=== PATIENT | female | born 1985 | race Caucasian/White ===

== ENCOUNTER 2020-09-07 01:19 | Inpatient (IN) | payer OTHER ==
[2020-09-07] MEDS ORDERED: Sodium Chloride 0.9% 2.5 ML Syringe FLUSH PRN (02:36)
[2020-09-07] MEDS ORDERED: Lidocaine 1% 50 ML MDV INJECT PRN (02:36)
[2020-09-07] MEDS ORDERED: Sodium Chloride 0.9% 10 ML Syringe FLUSH PRN (02:36)
[2020-09-07] MEDS ORDERED: Tranexamic Acid 1,000 MG in Sodium Chloride 0.9% 100 ML IV PRN (02:36)
[2020-09-07] MEDS ORDERED: Ondansetron 4 MG/2 ML SDV IVPUSH PRN (02:36)
[2020-09-07] MEDS ORDERED: Sodium Chloride 0.9% 10 ML SDV IV PRN (02:36)
[2020-09-07] MEDS ORDERED: Terbutaline 1 MG/ML SDV SUBCUT PRN (02:36)
[2020-09-07] MEDS ORDERED: Misoprostol 200 MCG Tab PO PRN (02:36)
[2020-09-07] MEDS ORDERED: Carboprost Tromethamine 250 MCG/1 ML Amp IM PRN (02:36)
[2020-09-07] MEDS ORDERED: Water For Irrigation,Sterile 1,000 ML Container IRR PRN (02:36)
[2020-09-07] MEDS ORDERED: Butorphanol 1 MG/ML SDV IVPUSH PRN (02:36)
[2020-09-07] MEDS ORDERED: Methylergonovine 0.2 MG/1 ML Amp IM PRN (02:36)
[2020-09-07] MEDS ORDERED: Lactated Ringers 1,000 ML IV SCH (02:45)
[2020-09-07] MEDS ORDERED: Oxytocin/0.9 % Sodium Chloride 30 UNIT/500 ML BAG IV SCH ×2 (02:45)
[2020-09-07] MEDS ORDERED: Misoprostol 25 MCG (1/4 of 100 MCG) Tab VAG PRN ×2 (03:00→07:00)
[2020-09-07] MEDS ORDERED: Ropivacaine HCl/PF 100 ML ONE (10:34)
[2020-09-07] MEDS ORDERED: fentaNYL 100 MCG/2 ML SDV ONE (10:34)
--- NOTE | 2020-09-07 11:06 | PCM.PREANE ---
Preanesthetic Assessment - Anesthesia/Transfusion/Family Hx Anesthesia History: Prior Anesthesia Without Reaction Family History of Anesthesia Reaction: No Transfusion History: No Prior Transfusion(s) - Physical Assessment NPO Status Date: 09/07/20 NPO Status Time: 09:30 Height: 1.75 m Weight: 126.099 kg ASA Class: 2 - Lab Values: Laboratory Last Values WBC 14.56 K/uL (4.0-11.0) H 09/07/20 02:00 RBC 4.33 M/uL (4.30-5.90) 09/07/20 02:00 Hgb 12.6 g/dL (12.0-16.0) 09/07/20 02:00 Hct 36.9 % (36.0-46.0) 09/07/20 02:00 MCV 85.2 fL (80.0-98.0) 09/07/20 02:00 MCH 29.1 pg (27.0-32.0) 09/07/20 02:00 MCHC 34.1 g/dL (31.0-37.0) 09/07/20 02:00 RDW Std Deviation 43.5 fl (28.0-62.0) 09/07/20 02:00 RDW Coeff of Karen 14 % (11.0-15.0) 09/07/20 02:00 Plt Count 292 K/uL (150-400) 09/07/20 02:00 MPV 9.70 fL (7.40-12.00) 09/07/20 02:00 Nucleated RBC % 0.0 /100WBC 09/07/20 02:00 Nucleated RBCs # 0 K/uL 09/07/20 02:00 SARS-CoV-2 RNA (ЕКАТЕРИНА) NEGATIVE (NEGATIVE) 09/07/20 02:05 Blood Type A POSITIVE 09/07/20 02:00 Antibody Screen NEGATIVE 09/07/20 02:00 - Allergies Allergies/Adverse Reactions: Allergies Allergy/AdvReac Type Severity Reaction Status Date / Time No Known Allergies Allergy Verified 01/07/14 12:11 - Acknowledgements Anesthesia Type Planned: Epidural Pt an Appropriate Candidate for the Planned Anesthesia: Yes Alternatives and Risks of Anesthesia Discussed w Pt/Guardian: Yes Pt/Guardian Understands and Agrees with Anesthesia Plan: Yes PreAnesthesia Questionnaire HEENT History: Reports: None Cardiovascular History: Reports: None Respiratory History: Reports: None Gastrointestinal History: Reports: None, GERD Genitourinary History: Reports: None [employer]ER History: Reports: Fibroids, Musculoskeletal History: Reports: None Neurological History: Reports: None, Migraines Psychiatric History: Reports: None Endocrine/Metabolic History: Reports: None, Obesity/BMI 30+ Hematologic History: Reports: None Immunologic History: Reports: None Oncologic (Cancer) History: Reports: None Dermatologic History: Reports: None - Infectious Disease History Infectious Disease History: Reports: None - Past Surgical History Head Surgeries/Procedures: Reports: None HEENT Surgical History: Reports: LASIK Other HEENT Surgeries/Procedures: migraines Cardiovascular Surgical History: Reports: None GI Surgical History: Reports: None Female Surgical History: Reports: None Endocrine Surgical History: Reports: None Neurological Surgical History: Reports: None Musculoskeletal Surgical History: Reports: None, Shoulder Surgery Oncologic Surgical History: Reports: None Dermatological Surgical History: Reports: None - SUBSTANCE USE Tobacco Use Status *Q: Never Tobacco User Tobacco Use Within Last Twelve Months: No Recreational Drug Use History: No - HOME MEDS Home Medications: Home Meds Ethinyl Estradiol/Norgestrel [Cryselle 28-Day] 1 tab PO DAILY 01/07/14 [History] Fexofenadine [Priya] 180 mg PO DAILY 01/07/14 [History] Ibuprofen [IJD: Ibuprofen] 800 mg PO Q6H PRN #20 tablet 01/26/16 [Rx] - CURRENT (IN HOUSE) MEDS Current Meds: Current Medications Butorphanol Tartrate (Butorphanol 1 Mg/Ml Sdv) 1 mg IVPUSH Q1H PRN PRN Reason: Pain Last Admin: 09/07/20 09:26 Dose: 1 mg Documented by: Carboprost Tromethamine (Carboprost Tromethamine 250 Mcg/1 Ml Amp) 250 mcg IM ASDIRECTED PRN PRN Reason: Post Hemorrhage Oxytocin/Sodium Chloride (Oxytocin 30 Unit/500 Ml-Ns) 30 unit in 500 mls @ 999 mls/hr IV TITRATE OFELIA Tranexamic Acid 1,000 mg/ (Sodium Chloride) 110 mls @ 660 mls/hr IV ONETIME PRN PRN Reason: Bleeding Oxytocin/Sodium Chloride (Oxytocin 30 Unit/500 Ml-Ns) 30 unit in 500 mls @ 2 mls/hr IV TITRATE OFELIA; Protocol Last Titration: 09/07/20 09:26 Dose: 4 munits/min, 4 mls/hr Documented by: Lactated Ringer's (Ringers, Lactated) 1,000 mls @ 150 mls/hr IV ASDIRECTED OFELIA Last Admin: 09/07/20 08:23 Dose: 150 mls/hr Documented by: Lidocaine HCl (Lidocaine 1% 50 Ml Mdv) 50 ml INJECT ONETIME PRN PRN Reason: Laceration repair Methylergonovine Maleate (Methylergonovine 0.2 Mg/1 Ml Amp) 0.2 mg IM ASDIRECTED PRN PRN Reason: Post Hemorrhage Misoprostol (Misoprostol 200 Mcg Tab) 200 mcg PO ONETIME PRN PRN Reason: Post Hemorrhage Misoprostol (Misoprostol 25 Mcg (1/4 Of 100 Mcg) Tab) 25 mcg VAG ONETIME PRN PRN Reason: Cervical Ripening Last Admin: 09/07/20 03:04 Dose: 25 mcg Documented by: Misoprostol (Misoprostol 25 Mcg (1/4 Of 100 Mcg) Tab) 25 mcg VAG Q4H PRN PRN Reason: Cervical Ripening Ondansetron HCl (Ondansetron 4 Mg/2 Ml Sdv) 4 mg IVPUSH Q6H PRN PRN Reason: Nausea/Vomiting Sodium Chloride (Sodium Chloride 0.9% 10 Ml Syringe) 10 ml FLUSH ASDIRECTED PRN PRN Reason: Keep Vein Open Sodium Chloride (Sodium Chloride 0.9% 2.5 Ml Syringe) 2.5 ml FLUSH ASDIRECTED PRN PRN Reason: Keep Vein Open Sodium Chloride (Sodium Chloride 0.9% 10 Ml Sdv) 10 ml IV ASDIRECTED PRN PRN Reason: IV Use Sterile Water (Water For Irrigation,Sterile 1,000 Ml Container) 1,000 ml IRR ASDIRECTED PRN PRN Reason: delivery Terbutaline Sulfate (Terbutaline 1 Mg/Ml Sdv) 0.25 mg SUBCUT ASDIRECTED PRN PRN Reason: Tacysystole Discontinued Medications Fentanyl (Fentanyl 100 Mcg/2 Ml Sdv) Confirm Administered Dose 100 mcg .ROUTE .STK-MED ONE Stop: 09/07/20 10:35 Ropivacaine (Naropin 0.2%) Confirm Administered Dose 100 mls @ as directed .ROUTE .STK-MED ONE Stop: 09/07/20 10:35
--- NOTE | 2020-09-07 11:11 | PCM.PRNOTE ---
- Free Text/Narrative Note: Anes Note Patient requests epidural for L&D. Sitting position. Level L3-L4 midline approach. Sterile technique. Chloraprep scrub to lumbar area. Sterile fenestrated drape applied. Epidural space easily achieved single attempt with ease using LORI technique. LORI at 4 cm. Cath threaded 6 cm with ease. Cath secured at skin using sterile clear adhesive dressing. Test 1042 3 cc 1.5% lido with epi negative. 1045 Load 10 cc 0.2% ropivicaine iwth 1 mcg cc fentayl in slow divided doses. 1049 Pumps started with 90 cc same solution. Rate is 8 cc hr wiht 6 cc q 20 min prn bolus. Garcia well. Time with paitent [id number] Haseeb Gamble [employer]CH[employer] REGISTRAR
[2020-09-07] MEDS ORDERED: Lanolin 100% Cream 7 GM Tube TOP PRN (13:57)
[2020-09-07] MEDS ORDERED: Acetaminophen 500 MG Tab PO PRN ×2 (13:57)
[2020-09-07] MEDS ORDERED: Ibuprofen 800 MG Tab PO PRN (13:57)
[2020-09-07] MEDS ORDERED: Ibuprofen 400 MG Tab PO PRN (13:57)
[2020-09-07] MEDS ORDERED: Bisacodyl 10 MG Supp RECTAL PRN (13:57)
[2020-09-07] MEDS ORDERED: oxyCODONE 5 MG Tab PO PRN (13:57)
[2020-09-07] MEDS ORDERED: Docusate Sodium 100 MG Cap PO PRN (13:57)
[2020-09-07] MEDS ORDERED: Benzocaine/Menthol 20%-0.5% Spray 78 GM Cannister TOP PRN (13:57)
[2020-09-07] MEDS ORDERED: Witch Hazel Medicated Pads 40/Jar TOP PRN (13:57)
--- NOTE | 2020-09-07 14:05 | PCM.OPNOTE ---
- General Post-Op/Procedure Note Date of Surgery/Procedure: 09/07/20 Operative Procedure(s): /1stMLL repaired Findings: Viable female APGARs 8, 9 weight 4120 gm Spontaneous delivery intact placenta with 3V cord Pre Op Diagnosis: 40 week IUP. AMA Post-Op Diagnosis: Same Anesthesia Technique: Epidural Primary Surgeon: Virginie Stephens EBL in mLs: 250 Complications: none known Condition: Good Free Text/Narrative:: Dictation [id number]
--- NOTE | 2020-09-07 16:18 | OR ---
SURGEON: Virginie Stephens M.D. DATE OF PROCEDURE: 09/07/2020 PREOPERATIVE DIAGNOSES: 1. A 40 week intrauterine . 2. Advanced maternal age. POSTOPERATIVE DIAGNOSES: 1. A 40 week intrauterine . 2. Advanced maternal age. PROCEDURES: 1. Spontaneous vaginal delivery. 2. First-degree midline laceration repair. PRIMARY SURGEON: Virginie Stephens M.D. ANESTHESIA: Epidural. ESTIMATED BLOOD LOSS: 250 mL. COMPLICATIONS: None known. FINDINGS: Viable female. scores 8 at one minute and 9 at five minutes. Weight of 4120 g. Spontaneous delivery, intact placenta, 3-vessel cord. DISPOSITION: Infant to nursery, mom in LDRP. PROCEDURE IN DETAIL: Liberty is a 35-year-old G2, P1 at 40 weeks gestational age who presented for scheduled induction of labor due to advanced maternal age. Risks of procedure had been discussed. Proper consent obtained. The patient initially was found to be about a 0.5 cm dilated, therefore, underwent Cytotec ripening, received a single dose 25 mcg, responded nicely to this, began having regular contractions. By the following morning, she was found to be approximately 2 cm, therefore, transitioned to Pitocin, became seemingly more uncomfortable with regular contractions, and had spontaneous rupture of membranes with clear fluid. She is group B beta strep negative. She then underwent regional anesthesia in the form of epidural, became more comfortable. heart tones remained category 1. She continued to progress nicely through the morning hours and shortly after 1 p.m., she was found to be complete, 100% effaced, at a +1 station, and I was called for delivery. Upon my arrival, the patient was placed in modified dorsal lithotomy position. She was prepped and draped in the usual aseptic manner. Pitocin was at 12 milliunits per minute. The patient began pushing efforts, pushed readily to a +4 station. I was able to deliver 's head atraumatically spontaneously, followed by anterior shoulder, posterior shoulder, and remainder of body without difficulty. There was a loose nuchal cord x1, reduced manually. Infant was delivered, handed off to her mother with attending nursing staff at her side. After a delay, cord was clamped x2 and cut. Cord arterial, cord venous, and cord bloods sampling obtained. Light pressure was applied while the placenta was delivered spontaneously intact. Vigorous fundal uterine massage was then applied while 30 units of Pitocin was delivered in 500 mL of IV fluid. Upon inspection of cervix, vaginal sidewall, and perineum, there was a first-degree bilateral labial lacerations that were repaired using 3-0 chromic on SH needle and a first-degree midline laceration of the perineum, which was repaired using 3-0 chromic on SH needle. Hemostasis remained evident. The patient tolerated the repair well. Uterus remained firm. Sponge, instrument, and needle counts were correct. The patient remained in LDRP, infant to nursery. MANDA / JUAN /[id number]
[2020-09-08 08:11] VITALS: BP 126/79; PULSE 77
--- NOTE | 2020-09-08 10:15 | PCM.PNPP ---
- General Info Date of Service: 09/08/20 Functional Status: Reports: Pain Controlled, Tolerating Diet, Ambulating, Urinating - Review of Systems General: Reports: Fatigue. Denies: Fever, Weakness Pulmonary: Denies: Shortness of Breath Cardiovascular: Denies: Chest Pain, Palpitations, Lightheadedness Gastrointestinal: Denies: Abdominal Pain, Nausea, Vomiting Genitourinary: Denies: Flank Pain Musculoskeletal: Reports: No Symptoms Skin: Reports: No Symptoms Neurological: Reports: No Symptoms Psychiatric: Reports: No Symptoms - General Info Date of Service: 09/08/20 - Patient Data Vital Signs - Most Recent: Last Vital Signs Temp 36.1 C 09/08/20 08:10 Pulse 77 09/08/20 08:10 Resp 18 09/08/20 08:10 BP 126/79 09/08/20 08:10 Pulse Ox 96 09/08/20 08:10 Weight - Most Recent: 126.099 kg Lab Results - Last 24 Hours: Laboratory Results - last 24 hr 09/07/20 09/08/20 Range/Units 13:29 05:34 Hgb 12.3 (12.0-16.0) g/dL Hct 36.9 (36.0-46.0) % Cord ABG pH 7.372 (7.18-7.38) Cord ABG Base Excess -3 (-10--2) Cord VBG pH 7.737 H (7.25-7.45) Cord VBG Base Excess -3 (-10--2) Med Orders - Current: Current Medications Acetaminophen (Acetaminophen 500 Mg Tab) 500 mg PO Q4H PRN PRN Reason: Pain Acetaminophen (Acetaminophen 500 Mg Tab) 1,000 mg PO Q4H PRN PRN Reason: Pain Last Admin: 09/07/20 19:38 Dose: 1,000 mg Documented by: Benzocaine/Menthol (Benzocaine/Menthol 20%-0.5% Juliaetta 78 Gm Cannister) 78 gm TOP ASDIRECTED PRN PRN Reason: Perineal Comfort Measure Last Admin: 09/07/20 18:33 Dose: 1 canister Documented by: Bisacodyl (Bisacodyl 10 Mg Supp) 10 mg RECTAL ONETIME PRN PRN Reason: Constipation Docusate Sodium (Docusate Sodium 100 Mg Cap) 100 mg PO BID PRN PRN Reason: Constipation Emollient Ointment (Lanolin 100% Cream 7 Gm Tube) 0 gm TOP ASDIRECTED PRN PRN Reason: Sore Nipples Last Admin: 09/07/20 18:32 Dose: 1 tube Documented by: Oxytocin/Sodium Chloride (Oxytocin 30 Unit/500 Ml-Ns) 30 unit in 500 mls @ 999 mls/hr IV TITRATE OFELIA Tranexamic Acid 1,000 mg/ (Sodium Chloride) 110 mls @ 660 mls/hr IV ONETIME PRN PRN Reason: Bleeding Oxytocin/Sodium Chloride (Oxytocin 30 Unit/500 Ml-Ns) 30 unit in 500 mls @ 2 mls/hr IV TITRATE OFELIA; Protocol Last Titration: 09/07/20 12:55 Dose: 12 munits/min, 12 mls/hr Documented by: Lactated Ringer's (Ringers, Lactated) 1,000 mls @ 150 mls/hr IV ASDIRECTED OFELIA Last Admin: 09/07/20 08:23 Dose: 150 mls/hr Documented by: Ibuprofen (Ibuprofen 400 Mg Tab) 400 mg PO Q4H PRN PRN Reason: Pain Ibuprofen (Ibuprofen 800 Mg Tab) 800 mg PO Q6H PRN PRN Reason: Pain Ondansetron HCl (Ondansetron 4 Mg/2 Ml Sdv) 4 mg IVPUSH Q6H PRN PRN Reason: Nausea/Vomiting Oxycodone HCl (Oxycodone 5 Mg Tab) 5 mg PO Q2H PRN PRN Reason: Pain Sodium Chloride (Sodium Chloride 0.9% 10 Ml Syringe) 10 ml FLUSH ASDIRECTED PRN PRN Reason: Keep Vein Open Sodium Chloride (Sodium Chloride 0.9% 2.5 Ml Syringe) 2.5 ml FLUSH ASDIRECTED PRN PRN Reason: Keep Vein Open Sodium Chloride (Sodium Chloride 0.9% 10 Ml Sdv) 10 ml IV ASDIRECTED PRN PRN Reason: IV Use Sterile Water (Water For Irrigation,Sterile 1,000 Ml Container) 1,000 ml IRR ASDIRECTED PRN PRN Reason: delivery Witch Violetta (Witch Violetta Medicated Pads 40/Jar) 1 pad TOP ASDIRECTED PRN PRN Reason: comfort care Last Admin: 09/07/20 18:34 Dose: 1 tub Documented by: Discontinued Medications Butorphanol Tartrate (Butorphanol 1 Mg/Ml Sdv) 1 mg IVPUSH Q1H PRN PRN Reason: Pain Last Admin: 09/07/20 09:26 Dose: 1 mg Documented by: Carboprost Tromethamine (Carboprost Tromethamine 250 Mcg/1 Ml Amp) 250 mcg IM ASDIRECTED PRN PRN Reason: Post Hemorrhage Fentanyl (Fentanyl 100 Mcg/2 Ml Sdv) Confirm Administered Dose 100 mcg .ROUTE .STK-MED ONE Stop: 09/07/20 10:35 Ropivacaine (Naropin 0.2%) Confirm Administered Dose 100 mls @ as directed .ROUTE .STK-MED ONE Stop: 09/07/20 10:35 Lidocaine HCl (Lidocaine 1% 50 Ml Mdv) 50 ml INJECT ONETIME PRN PRN Reason: Laceration repair Methylergonovine Maleate (Methylergonovine 0.2 Mg/1 Ml Amp) 0.2 mg IM ASDIRECTED PRN PRN Reason: Post Hemorrhage Misoprostol (Misoprostol 200 Mcg Tab) 200 mcg PO ONETIME PRN PRN Reason: Post Hemorrhage Misoprostol (Misoprostol 25 Mcg (1/4 Of 100 Mcg) Tab) 25 mcg VAG ONETIME PRN PRN Reason: Cervical Ripening Last Admin: 09/07/20 03:04 Dose: 25 mcg Documented by: Misoprostol (Misoprostol 25 Mcg (1/4 Of 100 Mcg) Tab) 25 mcg VAG Q4H PRN PRN Reason: Cervical Ripening Terbutaline Sulfate (Terbutaline 1 Mg/Ml Sdv) 0.25 mg SUBCUT ASDIRECTED PRN PRN Reason: Tacysystole - Interaction Support Person: - Recovery Exam Fundal Tone: Firm Fundal Level: At Umbilicus Fundal Placement: Midline Lochia Amount: Scant Lochia Color: Rubra/Red Perineum Description: Intact, Minimal Bruising/Swelling Episiotomy/Laceration: None Bladder Status: Voiding Urinary Elimination: Voided - Exam General: Alert, Oriented Lungs: Normal Respiratory Effort Cardiovascular: Regular Rate, Regular Rhythm GI/Abdominal Exam: Normal Bowel Sounds, Soft, Non-Tender Extremities: Pedal Edema (trace). No: Kalyani's Sign Skin: Warm, Dry, Intact Neurological: No New Focal Deficit Psy/Mental Status: Alert, Normal Affect, Normal Mood - Problem List & Annotations (1) Vaginal delivery SNOMED Code(s): 806654977 Code(s): O80 - ENCOUNTER FOR FULL-TERM UNCOMPLICATED DELIVERY Status: Acute Current Visit: No - Problem List Review Problem List Initiated/Reviewed/Updated: Yes - My Orders Last 24 Hours: My Active Orders 09/07/20 13:57 Patient Status [ADT] Routine May Shower [RC] ASDIRECTED Notify Provider Vital Signs [RC] ASDIRECTED Up ad Nadia [RC] ASDIRECTED Vital Signs [RC] PER UNIT ROUTINE Acetaminophen [Tylenol Extra Strength] 1,000 mg PO Q4H PRN Acetaminophen [Tylenol Extra Strength] 500 mg PO Q4H PRN Benzocaine/Menthol [Dermoplast Pain Relief 20%-0.5% Juliaetta] 78 gm TOP ASDIRECTED PRN Docusate Sodium [Colace] 100 mg PO BID PRN Ibuprofen [Motrin] 400 mg PO Q4H PRN Ibuprofen [Motrin] 800 mg PO Q6H PRN Lanolin [Lansinoh HPA] See Dose Instructions TOP ASDIRECTED PRN bisacodyL [Dulcolax] 10 mg RECTAL ONETIME PRN oxyCODONE 5 mg PO Q2H PRN witch Violetta [Tucks] 1 pad TOP ASDIRECTED PRN Assess Lochia [WOMSER] Per Unit Routine Assess Uterine Involution [WOMSER] Per Unit Routine Peripheral IV Discontinue [OM.PC] Routine 09/07/20 13:58 Cooling Warming Measures [RC] ASDIRECTED Ice Therapy [OM.PC] Per Unit Routine Perineal Care [OM.PC] Per Unit Routine 09/07/20 Dinner Regular Diet [DIET] 09/08/20 10:13 Ready for Discharge [RC] PER UNIT ROUTINE - Assessment Assessment:: PPD 1 status post - Plan Plan:: VS and labs are reassuring. Patient would like to go home today. Discharge instructions reviewed. Follow up at [facility] 4 weeks. Discharge to home.
--- NOTE | 2020-09-08 11:51 | PCM48HPAN ---
Post Anesthesia Note - EVALUATION WITHIN 48HRS OF ANESTHETIC Vital Signs in Normal Range: Yes Patient Participated in Evaluation: Yes Respiratory Function Stable: Yes Airway Patent: Yes Cardiovascular Function Stable: Yes Hydration Status Stable: Yes Pain Control Satisfactory: Yes Nausea and Vomiting Control Satisfactory: Yes Mental Status Recovered: Yes Vital Signs: Last Vital Signs Temp 36.1 C 09/08/20 08:10 Pulse 77 09/08/20 08:10 Resp 18 09/08/20 08:10 BP 126/79 09/08/20 08:10 Pulse Ox 96 09/08/20 08:10
== END 2020-09-08 16:10 | disposition home or self-care (01) | DRG 807 ==
LOC: MW.OB 01:19 → MW.OBCHECK 01:19 → MW.OB 01:20 → MW.OBCHECK 01:20 → OBSVTOIN 13:29 → MW.OB 16:00
PROVIDERS: ADMIT Obstetrics & Gynecology; ATTEND Obstetrics & Gynecology
PROC: 10E0XZZ Delivery of Products of Conception, External Approach (ICD-10-PCS; principal; 2020-09-07)
PROC: 0HQ9XZZ Repair Perineum Skin, External Approach (ICD-10-PCS; 2020-09-07)
PROC: 3E0P7VZ Introduction of Hormone into Female Reproductive, Via Natural or Artificial Opening (ICD-10-PCS; 2020-09-07)
PROC: 3E0R3BZ Introduction of Anesthetic Agent into Spinal Canal, Percutaneous Approach (ICD-10-PCS; 2020-09-07)
PROC: 00HU33Z Insertion of Infusion Device into Spinal Canal, Percutaneous Approach (ICD-10-PCS; 2020-09-07)
DX: O99.62 Diseases of the digestive system complicating childbirth (principal); Z37.0 Single live birth; K21.9 Gastro-esophageal reflux disease without esophagitis; O99.214 Obesity complicating childbirth; E66.9 Obesity, unspecified; O70.0 First degree perineal laceration during delivery; Z3A.40 40 weeks gestation of pregnancy
CPT/HCPCS: 36415; 59025; 59409; 82803; 85014; 85018; 85027; 86592; 86850; 86900; 86901; A9270-GY; J0595; J2590; J2795; J3010; J7120; U0002